=== PATIENT | male | born 1995 | race Caucasian/White ===

== ENCOUNTER 2024-05-20 15:54 | Outpatient (REF) | payer MEDICAID, SELFPAY ==
--- NOTE | ~2024-05-20 | XR_ITS ---
EXAMINATION: XR CERVICAL SPINE CLINICAL INFORMATION: neck pain/ LOW COMPARISON: None available. TECHNIQUE: 5 views of the cervical spine, inclusive of bilateral oblique views, were obtained. FINDINGS: Mild reversal of the normal lordosis centered at C3. Minimal levoconvex scoliosis. No subluxations. No fracture, compression deformity, or suspicious bone lesion. C1-2 articulation and craniocervical junction are intact and aligned. Normal facet alignment. Disc spaces appear normal. No significant bony neural foraminal narrowing on either side. The pre and paravertebral soft tissues are normal. The lung apices are clear. XR/XR cervical spine 4V IMPRESSION: No acute findings of the cervical spine. Electronically signed by: Darren Rios MD 05/20/2024 04:37 PM EDT
--- NOTE | ~2024-05-20 | XR_ITS ---
EXAMINATION: XR LUMBOSACRAL SPINE CLINICAL INFORMATION: LBP/sciatica COMPARISON: None available. TECHNIQUE: 5 views of the lumbar spine, inclusive of bilateral oblique views, were obtained. FINDINGS: There is a minimal levoconvex scoliosis. There is a normal lumbar lordosis. There is no subluxation. There is no compression deformities, acute fracture, or suspicious bone lesion. Disc spaces appear preserved throughout. Facets are normally aligned without significant facet arthropathy. Oblique views demonstrate no evidence of pars defects. There is no soft tissue abnormality. XR/XR lumbar spine 4V min IMPRESSION: No acute findings of the lumbar spine. Electronically signed by: Darren Rios MD 05/20/2024 04:38 PM EDT
--- OUTSIDE RECORDS SUMMARY | 2024-05-20 17:55 | XMS_ITS | Encounter Summary ---
Author Name [facility] [place] [facility] [place] [facility] [place] Address [address] [place] [address] Care Team Providers Care Outplacement Consultant Name Role Phone RA DIONYANTONIETA Primary Care Provider Unavailab le Insurance Providers: All historical and current Section Date Range: From patient's date of to the date document was created. This section includes the names of all active insurance providers for the patient. Insurance Provider Type of Coverage Plan Name Start of Policy Coverage End of Policy Coverage Group Number Member ID Insurance Provider's Telephone Number Policy Vanegas's Name Patient's Relationship to Policy Vanegas Selected Encounter This section includes the information on record at [place] for the Encounter. Date/Time Encounter Type Encounter Description Reason Pro vider Source IHE Encounter Template Text not used by [place] Advance Directives: All historical and current Section Date Range: From patient's date of to the date document was created. This section includes ALL of a patient's completed or amended [place] Advance and Rescinded Directives. The entries below indicate that a directive exists for the patient, but an actual copy is not included with this document. The data comes from all [place] facilities. Date Advance Directives Provider Source Nov 16, 2022 ADVANCE DIRECTIVE DISCUSSION SULEIMAN DUBOSE [facility] Nov 16, 2022 ADVANCE DIRECTIVE SULEIMAN [facility]
--- OUTSIDE RECORDS SUMMARY | 2024-05-20 17:55 | XMS_ITS | Continuity of Care Document ---
Author Name [facility] Organization [facility] Care Team Providers Care Radiological Engineer Name Role Phone [facility] Unavailable Unavailable Problems Combined list of problems from Department of Defense and Veterans Affairs facilities. It does not include entries that were removed or entered in error. Problem Status Onset Date Problem Type Date of Resolution Comments Source Admits alcohol use Active Condition [facility] Ankle sprain Active Condition Apr 20, 2020 Entered By: THERESA HARRISON Comment: Ankle Sprain, L Side APR 10: Seen Urg Care in [place]?Apr 20, 2020 Entered By: THERESA HARRISON Comment: Tx Conservativel y; referred to Ortho? [facility] Depression Active Condition [facility] Dyspnea on exertion Active Condition Apr 27, 2020 Entered By: THERESA HARRISON Comment: Relative Decreased Stamina Attributed to Burn Pit Exposure [facility] Low back pain Active Condition [facility] Mild alcohol dependence (SNOMED CT [id number]) Active Condition [facility] Posttraumatic stress disorder Active Condition [facility] Shoulder pain Active Condition [facility] Tobacco abuse Active Condition Nov Entered By: CHHAYA KIRKLAND Comment: Tobacco (Nicotine Vape) use Disorder, Mild [facility] Diagnosis: ICD-10-CM F10.10 Alcohol abuse, uncomplicated Active Diagnosis [facility] Diagnosis: ICD-10-CM M54.2 Cervicalgia Active Diagnosis [facility] Diagnosis: ICD-10-CM Z00.01 Encounter for general adult medical exam w abnormal findings Active Diagnosis [facility] Diagnosis: ICD-10-CM Z53.20 Proc/trtmt not crd out bec pt decision for unsp reasons Active Diagnosis [facility] Diagnosis: ICD-10-CM F32.9 Major depressive disorder, single episode, unspecified Active Diagnosis [facility] Diagnosis: ICD-10-CM F43.10 Post-traumatic stress disorder, unspecified Active Diagnosis [facility] Diagnosis: ICD-10-CM F43.12 Post-traumatic stress disorder, chronic Active Diagnosis [facility] Immunizations Combined list of available immunizations from the Department of Defense and Veterans Affairs facilities. Immunization Series Date Given Administered By Site Reaction Lot Number CVX Code Drug Transplant Nurse Practitioner Status Comments Source INFLUENZA, UNSPECIFIED FORMULATION 2020 88 complet ed [facility] HEP B, ADULT 3 2015 43 complet ed SEE JLV [facility] HEP B, ADULT 2 2013 43 complet ed [facility] HEP A, UNSPECIFIED FORMULATION 1 2013 85 complet ed [facility] HEP B, ADULT 1 2013 43 complet ed [facility] TDAP 2013 115 complet ed [facility] Results Combined list of recent chemistry, hematology and other laboratory results from Department of Defense and Veterans Affairs, ranging from 15 months to all on record, depending upon the facility. Order Name Results Value Reference Range Date Interpretation Specimen Comments Source TSH THYROTROPIN [UNITS/VOLU ME] IN SERUM OR PLASMA 3.27 u[IU]/ mL 0.35 - 5.00 11/15 Specimen Type: SERUM No comment entered. Ordering Provider: TUYET FATIMA IF Report Released Date/Time: Nov 14, 2022 10:01 PM Reporting Lab: [facility] [address] [address] Performing Lab[facility] [place] [facility] [address] [address] [facility] [place] [facility] BASIC METABOLIC PANEL (fasting) UREA NITROGEN [MASS/VOLUM E] IN SERUM OR PLASMA 12 mg/dL 7 - 11/15 Specimen Type: SERUM No comment entered. Ordering Provider: TUYET FATIMA IF Report Released Date/Time: Nov 14, 2022 10:01 PM Reporting Lab: [facility] [place] [facility] [address] [address] Performing Lab: [facility] [place] [facility] [address] [address] [facility] BASIC METABOLIC PANEL (fasting) GLUCOSE [MASS/VOLUM E] IN SERUM OR PLASMA 78 mg/dL 65 - 100 11/15 Specimen Type: SERUM No comment entered. Ordering Provider: TUYET FATIMA IF Report Released Date/Time: Nov 14, 2022 10:01 PM Reporting Lab: [facility] [place] [facility] [address] [address] Performing Lab: [facility] [address] [address] [facility] BASIC METABOLIC PANEL (fasting) SODIUM [MOLES/VOLU ME] IN SERUM OR PLASMA 140 mmol/L 135 - 145 11/15 Specimen Type: SERUM No comment entered. Ordering Provider: TUYET FATIMA IF Report Released Date/Time: Nov 14, 2022 10:01 PM Reporting Lab: [facility] [address] [address] Performing Lab: [facility] [address] [address] [facility] BASIC METABOLIC PANEL (fasting) POTASSIUM [MOLES/VOLU ME] IN SERUM OR PLASMA 4.2 mmol/L 3.5 - 5.0 11/15 Specimen Type: SERUM No comment entered. Ordering Provider: TUYET FATIMA IF Report Released Date/Time: Nov 14, 2022 10:01 PM Reporting Lab: [facility] [place] [facility] [address] [address] Performing Lab: [facility] [address] [address] [facility] BASIC METABOLIC PANEL (fasting) CHLORIDE [MOLES/VOLU ME] IN SERUM OR PLASMA 103 mmol/L 100 - 110 11/15 Specimen Type: SERUM No comment entered. Ordering Provider: TUYET FATIMA IF Report Released Date/Time: Nov 14, 2022 10:01 PM Reporting Lab: [facility] [place] [facility] [address] [address] Performing Lab: [facility] [place] [facility] [address] [address] [facility] [facility] BASIC METABOLIC PANEL (fasting) CARBON DIOXIDE, TOTAL [MOLES/VOLU ME] IN SERUM OR PLASMA 26 meq/L 20 - 30 11/15 Specimen Type: SERUM No comment entered. Ordering Provider: TUYET FATIMA IF Report Released Date/Time: Nov 14, 2022 10:01 PM Reporting Lab: [facility] [place] [facility] [address] [address] Performing Lab: [facility] [place] [place] [facility] [address] [address] [facility] BASIC METABOLIC PANEL (fasting) CREATININE [MASS/VOLUM E] IN SERUM OR PLASMA 1.10 mg/dL 0.50 - 1.40 11/15 Specimen Type: SERUM No comment entered. Ordering Provider: TUYET FATIMA IF Report Released Date/Time: Nov 14, 2022 10:01 PM Reporting Lab: [facility] [place] [place] [facility] [address] [address] Performing Lab: [facility] [place] [place] [facility] [address] [address] [facility] [place] [facility] BASIC METABOLIC PANEL (fasting) GLOMERULAR FILTRATION RATE/1.73 SQ M.PREDICTED [VOLUME RATE/AREA] IN SERUM, PLASMA OR BLOOD BY CREATININE- BASED FORMULA (CKD-EPI 2020) >90mL/ min 60 11/15 Specimen Type: SERUM No comment entered. Ordering Provider: TUYET FATIMA IF Report Released Date/Time: Nov 14, 2022 10:01 PM Reporting Lab: [facility] [place] [facility] [address] [address] Performing Lab: [facility] [place] [place] [facility] [address] [address] [facility] LIVER FUNCTION PROTEIN [MASS/VOLUM E] IN SERUM OR PLASMA 7.1 g/dL 6.0 - 8.3 11/15 Specimen Type: SERUM No comment entered. Ordering Provider: TUYET FATIMA IF Report Released Date/Time: Nov 14, 2022 10:01 PM Reporting Lab: [facility] [place] [facility] [address] [address] Performing Lab: [facility] [place] [place] [facility] [address] [address] [facility] [place] [facility] LIVER FUNCTION ALBUMIN [MASS/VOLUM E] IN SERUM OR PLASMA 4.2 g/dL 3.5 - 5.0 11/15 Specimen Type: SERUM No comment entered. Ordering Provider: TUYET FATIMA IF Report Released Date/Time: Nov 14, 2022 10:01 PM Reporting Lab: [facility] [place] [address] [address] Performing Lab: [facility] [place] [facility] [address] [address] [facility] [place] [facility] LIVER FUNCTION ALKALINE PHOSPHATASE [ENZYMATIC ACTIVITY/VO LUME] IN SERUM OR PLASMA 55 U/L 40 - 150 11/15 Specimen Type: SERUM No comment entered. Ordering Provider: TUYET FATIMA IF Report Released Date/Time: Nov 14, 2022 10:01 PM Reporting Lab: [facility] [place] [address] [address] Performing Lab: [facility] [place] [place] [facility] [address] [address] [facility] [place] [facility] LIVER FUNCTION ASPARTATE AMINOTRANSF ERASE [ENZYMATIC ACTIVITY/VO LUME] IN SERUM OR PLASMA 22 U/L 5 - 34 11/15 Specimen Type: SERUM No comment entered. Ordering Provider: TUYET FATIMA IF Report Released Date/Time: Nov 14, 2022 10:01 PM Reporting Lab: [facility] [place] [facility] [address] [address] Performing Lab: [facility] [address] [address] [facility] [facility] LIVER FUNCTION ALANINE AMINOTRANSF ERASE [ENZYMATIC ACTIVITY/VO LUME] IN SERUM OR PLASMA 40 U/L 11/15 Specimen Type: SERUM No comment entered. Ordering Provider: TUYET FATIMA IF Report Released Date/Time: Nov 14, 2022 10:01 PM Reporting Lab: [facility] [place] [facility] [address] [address] Performing Lab: [facility] [place] [facility] [address] [address] [facility] [place] [facility] LIVER FUNCTION BILIRUBIN.T OTAL [MASS/VOLUM E] IN SERUM OR PLASMA 0.8 mg/dL 0.2 - 1.2 11/15 Specimen Type: SERUM No comment entered. Ordering Provider: TUYET FATIMA IF Report Released Date/Time: Nov 14, 2022 10:01 PM Reporting Lab: [facility] [place] [facility] [address] [address] Performing Lab: [facility] [place] [facility] [address] [address] [facility] [place] [facility] Vital Signs Combined list of inpatient and outpatient Vital Signs from Department of Defense and Veterans Affairs, ranging from 12 months to all on record, depending upon the facility. Vital Sign Value Date Comments Source SYSTOLIC BLOOD PRESSURE 128 05/20/19 24 14:04:17 [facility] [place] [facility] DIASTOLIC BLOOD PRESSURE 78 024 14:04:17 [facility] WEIGHT 187 05/20/2023 14:04:17 [facility] BMI 28 kg/m2 05/20/2023 14:04:17 [facility] PAIN 0 05/20/2023 14:04:17 [facility] HEIGHT 69 05/20/2023 14:04:17 [facility] TEMPERATURE 97.3 05/20/2023 14:04:17 [facility] PULSE 81 05/20/2023 14:04:17 [facility] RESPIRATION 20 05/20/2023 14:04:17 [facility] Encounters Combined list of: 1) Encounters from Department of Veterans Affairs facilities going backup to the last 18 months, not all VA inpatient encounters are included; 2) Encounters from the Department of Defense facilities going backup to 280 months. Location Location Details Encounter Type Encounter Number Reason For Visit Attending Provider ADM Date DC Date Status Disposition Source [facility] OFFICE O/P EST LOW 20-29 MIN [id number] Diagnos is: ICD-10- CM F43.12 Post-tr aumatic stress disorde r, chronic LARROW,MARCELLE AN 11/18 [facility] [place] [facility] SBSQ HOSP IP/OBS HIGH 50 [id number] Diagnos is: ICD-10- CM F32.9 Major depress nirav disorde r, single episode , unspeci fied RA Colleen LAWRENCE 11/19 [facility] [place] [facility] GROUP PSYCHOTHER APY [id number] Diagnos is: ICD-10- CM F32.9 Major depress nirav disorde r, single episode , unspeci fied Colleen SANTO 11/19 [facility] [place] [facility] [place] CASE MANAGEMENT [id number] Diagnos is: ICD-10- CM F32.9 Major depress nirav disorde r, single episode , unspeci fied JUSTIN CARDONA 11/19 [facility] [place] [facility] [place] CASE MANAGEMENT [id number] Diagnos is: ICD-10- CM F43.10 Post-tr aumatic stress disorde r, unspeci fied TEOFILO-PIE RCE,JUSTIN 11/19 [facility] Inpatient Encounter [id number] 11/19 [facility] [place] SBSQ HOSP IP/OBS HIGH 50 [id number] Diagnos is: ICD-10- CM F32.9 Major depress nirav disorde r, single episode , unspeci fied RA Colleen LAWRENCE 11/20 [facility] [place] [facility] [place] CASE MANAGEMENT [id number] Diagnos is: ICD-10- CM F32.9 Major depress nirav disorde r, single episode , unspeci fied TEOFILO-PIE RCE,JUSTIN 11/20 [facility] [place] [facility] [place] [facility] ACTIVITY THERAPY, PER 15 MIN [id number] Diagnos is: ICD-10- CM F10.10 Alcohol abuse, uncompl icated AYSE MORE 11/20 [facility] [place] [facility] [place] Inpatient Encounter [id number] 11/20 [facility] [place] [facility] [place] PSYCH DIAGNOSTIC EVALUATION [id number] Diagnos is: ICD-10- CM F10.10 Alcohol abuse, uncompl icated JAY KIRKLAND 11/28 [facility] Outpatient Encounter [id number] JAY KIRKLAND 11/28 [facility] PSYCH DIAGNOSTIC EVALUATION [id number] Diagnos is: ICD-10- CM F10.10 Alcohol abuse, uncompl icated JAY KIRKLAND 11/28 [facility] Out[facility] Encounter [id number] 11/28 [facility] En[facility] [id number] 12/05 [facility] En[facility] [id number] 12/11 [facility] Encounter [id number] 12/14 [facility] Encounter [id number] 12/25 [facility] Encounter [id number] 12/26 [facility] Encounter [id number] 12/31 [facility] En[facility] [id number] 01/03 [facility] [id number] 11/17 /2023 [facility] En[facility] [id number] 01/07 [facility] Encounter [id number] 01/09 [facility] Encounter [id number] 01/28 [facility] Encounter [id number] 03/13 [facility] [place] Outpatient Encounter [id number] Diagnos is: ICD-10- CM Z53.20 Proc/tr tmt not crd out bec pt decisio n for unsp reasons Ca BARRON POLIVOLODYMYR03/18 [facility]P EST MOD 30 MIN [id number] Diagnos is: ICD-10- CM Z00.01 Encount er for general adult medical exam w abnorma l finding s Ca BARRON 05/19 [facility] Out[facility] En[facility] [id number] 05/20 [facility] Encounter [id number] 06/03 [facility] Encounter [id number] 06/09 [facility] Encounter [id number] 06/10 [facility] Encounter [id number] 06/10 [facility] Encounter [id number] 07/21 [facility] OFFICE O/P NEW MOD 45 MIN [id number] Diagnos is: ICD-10- CM M54.2 Cervica lgia NANCY CARLIN RA 09/09 [facility] En[facility] [id number] 09/09 [facility] Encounter [id number] 09/10 [facility] Encounter [id number] 09/10 [facility] Encounter [id number] 12/05 [facility] Encounter [id number] 01/06 [facility] Out[facility] Encounter [id number] 01/19 [facility] PSYCH DIAGNOSTIC EVALUATION [id number] Diagnos is: ICD-10- CM F10.10 Alcohol abuse, uncompl icated JAY KIRKLAND 02/02 [facility] Outpatient Encounter [id number] JAY KIRKLAND 02/02 [facility] [place] [facility] Outpatient Encounter [id number] 05[facility]08 [facility] Social History Combined list of available smoking, tobacco, and other social history from Department of Defense and Veterans Affairs facilities. Social History Type Response Date Comment Sour e Tobacco smoking status NHIS MD-TOBACCO NEVER USED CIGARETTES 02[facility]20[facility] History of tobacco use MD-TOBACCO USE EVERY DAY OTHER TYPE 02/03/2024 [facility] History of tobacco use MD-TOBACCO USER EVERY DAY 11/28/2022 [facility] History of tobacco use ORYX ADMIT TOBACCO SCREEN YES 11/14/2022 [facility] History of tobacco use MD-TOBACCO NEVER USED 04/27/2020 [facility] History of tobacco use LIFETIME NON-TOBACCO USER 09/07/2017 [facility] Plan of Care List of future care activities from Department of Veterans Affairs facilities. Additional future care activities may be listed in the Assessment and Plan section. Date/Time Care Activity Care Activity Detail Facili ty 05/19/2024 [facility] Advance Directives List of completed, amended, or rescinded Advance Directives on record at Department of Veterans Affairs facilities. An actual copy of the Directive is not included. Date Advance Directive Provider Source 11/16/2022 ADVANCE DIRECTIVE DISCUSSION SULEIMAN DUBOSE [facility] 11/16/2022 ADVANCE DIRECTIVE SULEIMAN DUBOSE [facility]
--- OUTSIDE RECORDS SUMMARY | 2024-05-20 17:55 | XMS_ITS | Clinical Summary ---
Author Organization [employer] Address [address] [facility] [address] [place] [address] Care Team Providers Care Rug Dyer Helper Name Role Phone Nikkie Wilson MD Primary Care Provider + Allergies No known active allergies Medications cyclobenzaprine (Flexeril) 10 MG tablet Take 1 tablet (10 mg) by mouth at bedtime for 10 days. 10 tablet 05/19/2024 5 Active acetaminophen (Tylenol Extra Strength) 500 MG tablet Take 1 tablet (500 mg) by mouth every 6 (six) hours if needed for mild pain. 120 tablet 05/19/2024 5 Active meloxicam (Mobic) 15 MG tablet Take 1 tablet (15 mg) by mouth Once per day. 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 Advised not to crack his neck anymore. Give him information about stretching exercises for his neck, refer to PT Meloxicam, Tylenol and Flexeril as above. Ordered x-rays and follow-up with PCP Chronic nonintractable headache 05/19/2024 Assessment & Plan (05/19/2024 7:23 PM EDT): Most likely tension headache due to DJD of the spine, unclear if related to previous head trauma/TBI at the and previous trauma in high school (played football and wrestling) Recommended stretching exercises for his C-spine, avoid cracking his cervical spine. Take Tylenol and Flexeril as needed Advised to quit nicotine Follow-up with PCP Acute right-sided low back pain with right-sided sciatica 05/19/2024 Assessment & Plan (05/19/2024 5:40 PM EDT): Referred to PT Take meloxicam x 1 to 2 weeks +Tylenol and Flexeril nightly. He can take Tylenol up to every 8 hours as needed pain. Caution with worsening leg weakness, paresthesias or urinary retention. Follow-up with your PCP in 1 to 2 months Current every day nicotine vaping 05/19/2024 Assessment & Plan (05/19/2024 7:22 PM EDT): Consult regarding risk of vaping and discussed the need to cut down on nicotine He will follow-up with your PCP Current every day cannabis vaping 05/19/2024 Assessment & Plan (05/19/2024 7:21 PM EDT): Advised to quit and discussed the connection between denies and chronic headache and also worsening of TBI symptoms Follow-up with new PCP Encounters Date Type Department Care Team Description 05/20/2024 Telephone [facility] [address] [place] [phone] Nikkie Wlison MD Care Management (C3CM- f/u call lv) 05/20/2024 Patient Outreach [facility] [address] [place] [phone] Nikkie Wilson MD Care Coordination (SDOH f/u) 05/19/2024 5:20 PM EDT Office Visit [facility] [address] [place] [phone] Nikkie Wilson MD Acute right-sided low back pain with right-sided sciatica (Primary Dx); Neck pain; Chronic nonintractable headache, unspecified headache type; Current every day nicotine vaping; Current every day cannabis vaping 05/13/2024 Telephone [facility] [address] [place] [phone] Payam Patel MD New patient appt. 05/13/2024 Patient Outreach [facility] [address] [place] [phone] Machelle Vincent Care Coordination (OFFSET PLATEMAKER appt) 05/13/2024 Population Health Risk Score [facility] () [address] [phone] Provider, Population Health Generic 05/11/2024 Telephone [facility] [address] [place] [phone] Kellen Vera RN Care Management (C3- initial assessment/ enrollment) 05/08/2024 Patient Outreach [facility] [address] [place] [address] [phone] Machelle Vincent Care Coordination (CM/CHW appt) 04/21/2024 Patient Outreach [address] [phone] Payam Patel MD Care Coordination (CM/CHW outreach) 04/16/2024 Patient Outreach [address] [phone] Payam Patel MD Care Coordination (CM/CHW outreach) from Last 3 Months Social History Tobacco Use Types Packs/Day Years Used Date Smoking Tobacco: Never Smokeless Tobacco: Never Tobacco Cessation:Counseling Given: Yes Alcohol Use Standard Drinks/Week Comments Yes 0 (1 standard drink = 0.6 oz pur e alcohol) Every other day wine/beer Sex and Gender Information Value Date Recorded Sex Assigned at Male 05/19/2024 4:30 PM EDT Legal Sex Male 2:31 PM EST Gender Identity Male 05/19/2024 4:30 PM EDT Sexual Orientation Straight 05/19/2024 4: 30 PM EDT Last Filed Vital Signs Vital Sign Reading Time Taken Comments Blood Pressure 140/80 05/19/2024 7:15 PM EDT Pulse 95 05/19/2024 4:57 PM EDT Temperature 37 ??C (98.6 ??F) 05/19/2024 4:57 PM EDT Respiratory Rate 18 05/19/2024 4:57 PM EDT Oxygen Saturation 97% 05/19/2024 4:57 PM EDT Inhaled Oxygen Concentration - - Weight 89.7 kg (197 lb 12.8 oz) 05/19/2024 4:57 PM EDT Height - - Body Mass Index - - Plan of Treatment Health Maintenance Due Date Last Done Comments Depression Screening 1995 HIV Screening 1995 SDOH Screening 1995 Alcohol/Substance Use Screening 2007 Family Planning (PISQ) 10/08/2010 Hepatitis C Screening 10/08/2013 Hepatitis A Vaccines (2 of 2 - 2-dose series) 03/28/2014 09/25/2013 DTaP/Tdap/Td Vaccines (2 - T d or Tdap) 09/24/2023 09/23/2013 COVID-19 Vaccine (2 - 2023-2 5 season) 2023 12/22/2020 Influenza Vaccine (#1) 2023 03/21/2020 Tobacco Screening 05/19/2025 05/19/2024 Zoster Vaccines (1 of 2) 10/08/2045 RSV Patients and Patients Aged 60 years or older (1 - 1-dose 75+ series) 10/08/2070 Hepatitis B Vaccines Completed 03/26/2015, 11/12/2013, 09/25/2013 HIB Vaccines Aged Out No longer eligi ble based on patient's age to complete this topic HPV Vaccines Aged Out No longer eligi ble based on patient's age to complete this topic IPV Vaccines Aged Out No longer eligi ble based on patient's age to complete this topic Meningococcal Vaccine Aged Out No dao gerry eligible based on patient's age to complete this topic Pneumococcal Vaccine: Pediatrics (0 to 5 Years) and At-Risk Patients (6 to 49) Years) Aged Out No longer eligible b ased on patient's age to complete this topic RSV under 20 months Aged Out No longe r eligible based on patient's age to complete this topic Rotavirus Vaccines Aged Out No longer eligible based on patient's age to complete this topic Procedures Procedure Name Priority Date/Time Associated Diagnosis Comments XR CERVICAL SPINE 4V Routine 05/20/2024 3:56 PM EDT Neck pain Chronic nonintractable headache, unspecified headache type XR LUMBAR SPINE COMPLETE 4+ VIEWS Routine 05/20/2024 3:56 PM EDT Acute right-sided low back pain with right-sided sciatica from Last 3 Months Results * XR CERVICAL SPINE 4V (05/20/2024 3:56 PM EDT) Anatomical Region Laterality Modality Abdomen Radiographic Elaine ging 05/20/2024 3:56 PM EDT Narrative 05/20/2024 4:39 PM EDT ?[facility] ?[address] ?[place] [address] ?XRay Report ? Signed ? Patient: Jose R,Valeriy ?MR#: [id number] ? : 1995 ?Acct:[id number] ? Age/Sex: 28 / M ?ADM Date: 05/20/24 ? Loc: HO.HHCX ? Attending Dr: Nikkie Wilson MD ? Ordering Physician: Nikkie Wilson MD ?? Date of Service: 05/20/24 ?? Procedure(s): XR cervical spine 4V ?? Accession Number(s): [id number] ? cc: Nikkie Wilson MD ? EXAMINATION: ?? XR CERVICAL SPINE ? CLINICAL INFORMATION: ?? neck pain/ LOW ? COMPARISON: ?? None available. ? TECHNIQUE: ?? 5 views of the cervical spine, inclusive of bilateral oblique views, ?? were obtained. ? FINDINGS: ?? Mild reversal of the normal lordosis centered at C3. Minimal levoconvex ?? scoliosis. ?? No subluxations. ?? No fracture, compression deformity, or suspicious bone lesion. ?? C1-2 articulation and craniocervical junction are intact and aligned. ?? Normal facet alignment. ?? Disc spaces appear normal. ? No significant bony neural foraminal narrowing on either side. ? The pre and paravertebral soft tissues are normal. The lung apices are ?? clear. ? XR/XR cervical spine 4V ?? IMPRESSION: ?? No acute findings of the cervical spine. ? Electronically signed by: ??Darren Rios MD ??05/20/2024 04:37 PM EDT RP ? Dictated By: ?Darren Rios MD ? Signed By: ?<Electronically signed by Darren Rios MD in OV> ?05/20/24 1637 ? DD/ 1556 ? TD/TT: 05/20/24 1600 ? Access Lead: ? Procedure Note Tyree, Image - 05/20/2024 [facility] [address] [place] [address] XRay Report Signed Patient: Tomy Odell#: [id number] : 1995Acct:[id number] Age/Sex: 28 / MADM Date: 05/20/24 Loc: HO.HHX Attending Dr: Nikkie Wilson MD Ordering Physician: Nikkie Wilson MD Date of Service: 05/20/24 Procedure(s): XR cervical spine 4V Accession Number(s): [id number] cc: Nikkie Wilson MD EXAMINATION: XR CERVICAL SPINE CLINICAL INFORMATION: neck pain/ LOW COMPARISON: None available. TECHNIQUE: 5 views of the cervical spine, inclusive of bilateral oblique views, were obtained. FINDINGS: Mild reversal of the normal lordosis centered at C3. Minimal levoconvex scoliosis. No subluxations. No fracture, compression deformity, or suspicious bone lesion. C1-2 articulation and craniocervical junction are intact and aligned. Normal facet alignment. Disc spaces appear normal. No significant bony neural foraminal narrowing on either side. The pre and paravertebral soft tissues are normal. The lung apices are clear. XR/XR cervical spine 4V IMPRESSION: No acute findings of the cervical spine. Electronically signed by: Darren Rios MD 05/20/2024 04:37 PM EDT Dictated By: Darren Rios MD Signed By: <Electronically signed by Darren Rios MD in OV> 05/20/24 1637 DD/ 1556 TD/TT: 05/20/24 1600 Access Lead: us Nikkie Wilson MD IMG XR PROCEDURES Final Result * XR Lumbar Spine Complete 4+ Views (05/20/2024 3:56 PM EDT) Anatomical Region Laterality Modality Spine, L-spine Radiographic Elaine ging 05/20/2024 3:56 PM EDT Narrative 05/20/2024 4:41 PM EDT ?[place] [facility] ?[address] ?[place] [address] ?XRay Report ? Signed ? Patient: Cave,Valeriy ?MR#: [id number] ? : 1995 ?Acct:[id number] ? Age/Sex: 28 / M ?ADM Date: 05/20/24 ? Loc: HO.HHCX ? Attending Dr: Nikkie Wilson MD ? Ordering Physician: Nikkie Wilson MD ?? Date of Service: 05/20/24 ?? Procedure(s): XR lumbar spine 4V min ?? Accession Number(s): [id number] ? cc: Nikkie Wilson MD ? EXAMINATION: ?? XR LUMBOSACRAL SPINE ? CLINICAL INFORMATION: ?? LBP/sciatica ? COMPARISON: ?? None available. ? TECHNIQUE: ?? 5 views of the lumbar spine, inclusive of bilateral oblique views, were ?? obtained. ? FINDINGS: ?? There is a minimal levoconvex scoliosis. There is a normal lumbar ?? lordosis. ?? There is no subluxation. ?? There is no compression deformities, acute fracture, or suspicious bone ?? lesion. ?? Disc spaces appear preserved throughout. ?? Facets are normally aligned without significant facet arthropathy. ? Oblique views demonstrate no evidence of pars defects. ? There is no soft tissue abnormality. ? XR/XR lumbar spine 4V min ?? IMPRESSION: ?? No acute findings of the lumbar spine. ? Electronically signed by: ??Darren Rios MD ??05/20/2024 04:38 PM EDT RP ? Dictated By: ?Darren Rios MD ? Signed By: ?<Electronically signed by Darren Rios MD in OV> ?05/20/24 1638 ? DD/ 1556 ? TD/TT: 05/20/24 1600 ? Access Lead: ? Procedure Note Weston Clements - 05/20/2024 [facility] [address] [place] [address] XRay Report Signed Patient: Tomy Odell#: [id number] : 1995Acct:[id number] Age/Sex: 28 / MADM Date: 05/20/24 Loc: HO.HHCX Attending Dr: Nikkie Wilson MD Ordering Physician: Nikkie Wilson MD Date of Service: 05/20/24 Procedure(s): XR lumbar spine 4V min Accession Number(s): [id number] cc: Nikkie Wilson MD EXAMINATION: XR LUMBOSACRAL SPINE CLINICAL INFORMATION: LBP/sciatica COMPARISON: None available. TECHNIQUE: 5 views of the lumbar spine, inclusive of bilateral oblique views, were obtained. FINDINGS: There is a minimal levoconvex scoliosis. There is a normal lumbar lordosis. There is no subluxation. There is no compression deformities, acute fracture, or suspicious bone lesion. Disc spaces appear preserved throughout. Facets are normally aligned without significant facet arthropathy. Oblique views demonstrate no evidence of pars defects. There is no soft tissue abnormality. XR/XR lumbar spine 4V min IMPRESSION: No acute findings of the lumbar spine. Electronically signed by: Darren Rios MD 05/20/2024 04:38 PM EDT Dictated By: Darren Rios MD Signed By: <Electronically signed by Darren Rios MD in OV> 05/20/24 1638 DD/ 1556 TD/TT: 05/20/24 1600 Access Lead: Nikkie Wilson MD IMG XR PROCEDURES Final Result from Last 3 Months Insurance [facility] C3 Care Teams Rug Dyer Helper Relationship Specialty Start Date End Date Nikkie Wilson MD [address] [place] [phone] PCP - General Internal Medicine 05/20/24
--- OUTSIDE RECORDS SUMMARY | 2024-05-20 17:55 | XMS_ITS | Encounter Summary ---
Author Name [facility] [place] Organization [facility] [place] Address [address] [place] [address] Care Team Providers Care Umbrella Tipper Name Role Phone VORADAVID Primary Care Provider Unavailab le Insurance Providers: [...] section includes the information on record at [place] for the Encounter. Date/Time Encounter Type Encounter Description Reason Pro vider Source Jan 20, 2024 09:00 AM Outpatient Encounter SUBSTANCE USE DISORDER IND IHE Encounter Template Text not used by [place] Plan of Treatment: Future Appointments (+ 6 months) and Future Tests (+/- 45 days) The Plan of Treatment section includes future care activities for the patient from all [place] treatmentfacilities. This section includes future appointments and future orders which are active, pending or scheduled. Future Appointments This section includes appointments that were scheduled to occur 6 months from the date of the Encounter, up to a maximum of 20 appointments. The data comes from all [place] treatment facilities. Appointment Date/Time Appointment Type Appointme nt Facility Name Feb 03, 2024 10:30 AM AMBULATORY - PSYCHIATRY [facility] May 19, 2024 02:00 PM AMBULATORY - MEDICINE [facility] Social History: Smoking Status (Most current) and Tobacco Use (All prior to encounter date) This section includes the most current, and the historical, smoking and tobacco- related health factors from the [place] facility where the Encounter took place. Current Smoking Status This section includes the most current smoking, or tobacco-related health factor, from the [place] facility where the Encounter took place. Date/Time Current Smoking Status Comment Facil ity Nov 28, 2022 10:30 AM VA-TOBACCO USER EVERY DAY [facility] Tobacco Use History This section includes a history of the smoking, or tobacco-related health factors, that were collected on or before the date of the Encounter. The data comes from the [place] facility where the Encounter took place. Date/Time Smoking Status/Tobacco Use Comment F acility Nov 28, 2022 10:30 AM VA-TOBACCO USE ADVICE [facility] Nov 28, 2022 10:30 AM VA-TOBACCO USE AUTOMOBILE CLUB INFORMATION CLERK NO [facility] Nov 28, 2022 10:30 AM VA-TOBACCO USE MED NO [facility] Nov 28, 2022 10:30 AM VA-TOBACCO USE WI 30 MIN [facility] Nov 28, 2022 10:30 AM VA-TOBACCO USER EVERY DAY [facility] Nov 14, 2022 10:22 PM ORYX ADMIT TOBACCO SCREEN YES [facility] Nov 14, 2022 10:22 PM ORYX ADMIT TOBACCO USE CIGS GR 5D [facility] Nov 14, 2022 10:22 PM ORYX DAILY TOBACCO AUTOMOBILE CLUB INFORMATION CLERK RECEIVED [facility] Nov 14, 2022 10:22 PM ORYX DAILY TOBACCO MEDS ORDERED [facility] Sep 07, 2017 09:04 AM LIFETIME NON-TOBACCO USER [facility] Advance Directives: All historical and current Section Date Range: From patient's date of to the date document was created. This section includes ALL of a patient's completed or amended [place] Advance and Rescinded Directives. The entries below indicate that a directive exists for the patient, but an actual copy is not included with this document. The data comes from all [place] facilities. Date Advance Directives Provider Source Nov 16, 2022 ADVANCE DIRECTIVE DISCUSSION SULEIMAN DUBOSE [facility] Nov 16, 2022 ADVANCE DIRECTIVE SULEIMAN DUBOSE [facility] Encounter Notes: All associated encounter notes This section contains the clinical notes associated to the Encounter. Date/Time Encounter Note(s) Provider Source Jan 20, 2024 09:44 AM CLERICAL NOTE: LOCAL TITLE: APPOINTMENT NO SHOW STANDARD TITLE: CLERICAL NOTE DATE OF NOTE: JAN 20, 2024@09:44 ENTRY DATE: JAN 20, 2024@09:44:58 AUTHOR: SANAM KIRKLAND COSIGNER: URGENCY: STATUS: COMPLETED Patient Name: LATISHA SALEEM Patient SSN: [id number] Date and time of Appointment No show : 01/20/24 09:00 PATIENT PHONE - [phone] PHONE NUMBER [CELLULAR] - Patient's medical record was reviewed. Follow-up actions were determined and initiated: Please check/complete as applies: [X]Telephoned Directly [ ]Re-scheduled for next available appt [X]Sent a N0-show letter ( must call for appointment) [ ]Other (Emergent/Overbook, etc.): Additional Comments: Patient did not show for Intake and Assessment appointment via [facility] on: Saturday, 20 JAN 2024 @ 0900 hours Resent patient email link to todays [facility] appointment. Called patient at in an attempt to reschedule intake appointment and/or reengage patient in treatment. No answer. Automated voice message stated, The mailbox is full and cannot receive any messages at this time. Goodbye.. No option to leave message for patient to call the undersigned back. Future Clinic Visits 05/19/2024 14:00 CWM/SO/PACT 9 /darcy/ SANAM KIRKLAND CLINIC LEAD Critical Care Physician Signed: 01/20/2024 09:45 SANAM KIRKLAND [facility]
--- OUTSIDE RECORDS SUMMARY | 2024-05-20 17:55 | XMS_ITS | Encounter Summary ---
Author Organization [employer] Address [address] [facility] [address] [place] [address] Care Team Providers Care Steamship Agent Name Role Phone Nikkie Wilson MD Primary Care Provider + Reason for Visit * Reason Onset Date Comments Care Management 05/20/2024 C3CM- f/u call l vm Encounter Details Date Type Department Care Team ([facility] st Contact Info) Description 05/20/2024 Telephone [facility] [address] [place], [place] [phone] Nikkie Wilson MD [address] [place], [place] [phone] Care Management (C3CM- f/u call lvm) Social History Tobacco Use Types Packs/Day Years Used Date Smoking Tobacco: Never Smokeless Tobacco: Never Alcohol Use Standard Drinks/Week Comments Yes 0 (1 standard drink = 0.6 oz pur e alcohol) Every other day wine/beer Sex and Gender Information Value Date Recorded Sex Assigned at Male 05/19/2024 4:30 PM EDT Legal Sex Male 2:31 PM EST Gender Identity Male 05/19/2024 4:30 PM EDT Sexual Orientation Straight 05/19/2024 4: 30 PM EDT documented as of this encounter Miscellaneous Notes * Telephone Encounter - Kellen Vera RN - 05/20/2024 9:48 AM EDT CM Kellen Vera RN placed outbound call with CHW Machelle Vincent to patient for follow up call. Noanswer at this time. LVM introducing herself from [facility] CM Department. Requested call back. CM reinforced direct contact information or CHW for any additional questions or concerns. Education provided on [facility]In Urgent Care located in [facility]. Patient provided with after-hours line for [facility], , which offer night time triage service and option to transfer to gastroenterology nurse practitioner provider if needed. CM will attempt another follow up call within 10 days. documented in this encounter Plan of Treatment Not on file documented as of this encounter Visit Diagnoses Not on filedocumented in this encounter Care Teams Steamship Agent Relationship Specialty Start Date End Date Nikkie Wilson MD [address] [place] [phone] PCP - General Internal Medicine 05/20/24 documented as of this encounter
--- OUTSIDE RECORDS SUMMARY | 2024-05-20 17:55 | XMS_ITS | Encounter Summary ---
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 visit, a [id number] visit will be scheduled. 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 Over the past month, have you wished you were or wished you could go to sleep and not wake up? Yes 2. Over the past month, have you had any actual thoughts of killing yourself? No 3. Over the past month, have you been thinking about how you might do this? Response not required due to responses to other questions. 4. Over the past month, have you had these thoughts and had some intention of acting on them? Response not required due to responses to other questions. 5. Over the past month, have you started to work out or worked out the details of how to kill yourself? Response not required due to responses to other questions. 6. If yes, at any time in the past month did you intend to carry out this plan? Response not required due to responses to other questions. 7. In your lifetime, have you ever done anything, started to do anything, or prepared to do anything to end your life (for example, collected pills, obtained a gun, gave away valuables, went to the roof but didn't jump)? Yes 8. If YES, was this within the past 3 months? No Depression Screening: Perform PHQ-2 A PHQ-2 screen was performed. The score was 6 which is a positive screen for depression. Over the past two weeks, how often have you been bothered by the following problems? 1. Little interest or pleasure in doing things Nearly every day 2. Feeling down, depressed, or hopeless Nearly every day Licensed Independent Provider notified of positive screen and need for follow-up. Name of provider notified: [place] [facility] Alcohol Use Screen (AUDIT-C): Alcohol Screen: SCREEN FOR ALCOHOL (AUDIT-C) An alcohol screening test (AUDIT-C) was negative (score=4). 1. How often did you have a drink containing alcohol in the past year? Consider a drink to be a 12 ounce can or bottle of regular beer, 8 ounces of malt liquor, a 5 ounce glass of table wine, or a 1.5 ounce shot of liquor (like scotch, gin, or vodka). Two to three times per week 2. How many drinks containing alcohol did you have on a typical day when you were drinking in the past year? One or two drinks 3. How often did you have six or more drinks on one occasion in the past year? Less than monthly Sexual Orientation: The patient thinks of their sexual orientation as: Straight or Heterosexual Tobacco Use Screening: The patient has never smoked cigarettes. The patient uses other type(s) of tobacco every day. Other Tobacco Type(s) used: Electronic Nicotine Delivery System (ENDS) (e.g., e-cigarettes/vape pens) Patient was advised to stop smoking and/or using other tobacco products. Advised patient that a combination of behavioral counseling and FDA-approved cessation medications is the most effective way to ensure their success in stopping to smoke and/or using other tobacco products. The patient was not interested in additional information about behavioral counseling and other support strategies discussed. Informed patient that medications can help with cravings and withdrawal symptoms, and they greatly increase the chances of successfully stopping your tobacco use. The patient was not interested in a prescription for tobacco cessation medications. /darcy/ SANAM HILLS [facility] Residential Real Estate Agent Signed: 02/03/2024 11:53 SANAM HILLS [facility]
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
--- OUTSIDE RECORDS SUMMARY | 2024-05-20 17:55 | XMS_ITS | Encounter Summary ---
Author Organization [employer] Address [address] [facility] [address] [place] [address] Care Team Providers Care Awning Hanger Supervisor Name Role Phone Unavailable Primary Care Provider Unavailabl e Reason for Referral * Consultation (Routine) - Closed Specialty Diagnoses / Procedures Referred By Contac t Referred To Contact Physical Therapy Diagnoses Acute right-sided low back pain with right-sided sciatica Nikkie Wilson MD [address] [place] [phone] Phone: tel: fax: Physical Therapy, AT [address] [place] [address] [address] [place] Phone: tel: fax: Referral ID Status Reason Start Date Expiration Date V isits Requested Visits Authorized [id number] Closed Specialty Services Required 05/19/2024 05/19/2025 20 20 Reason for Visit * Reason Comments Back Pain Encounter Details Date Type Department Care Team (Latest Contact Info) Description 05/19/2024 5:20 PM EDT Office Visit [facility] [address] [place] [address] [phone] Nikkie Wilson MD [address] [place] [address] [phone] Acute right-sided low back pain with right-sided sciatica (Primary Dx); Neck pain; Chronic nonintractable headache, unspecified headache type; Current every day nicotine vaping; Current every day cannabis vaping Social History Tobacco Use Types Packs/Day Years [...] PM EDT documented as of this encounter Last Filed Vital Signs Vital Sign Reading [...] - - Body Mass Index - - documented in this encounter Progress Notes * Nikkie Wilson MD - 05/19/2024 5:20 PM EDT SUBJECTIVE: Valeriy Odell is a 28 y.o. year old male who presents for [facility]/HEALTH FACILITIES SURVEYOR/LBP . Denies recent illness, injury, or hospitalization. PMH History of TBI (traumatic brain injury) during service, he also played football and wrestling in high school. He had recurrent headaches occasionally improved with ibuprofen Negative HTN, DM, CAD, asthma, seizure disorder. PSH None Meds Ibuprofen as needed Social Hx Lives with fianc??. 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 He vapes nicotine and THC daily He drinks 3-4 drinks every other day He denies using any other recreational substances All NKDA Patient here with his fianc??e for evaluation of LBP. Acute Concerns: Exacerbation of low back pain since this morning while watching TV, heat to his back and was unableto turn it back due to extreme pain and stiffness. Pain started radiating to lower extremity, associated to numbness difficulty ambulation but slowly improved with ibuprofen and stretching exercises.He has not had any recent trauma, falls or accidents. He had similar symptoms mostly his upper backfor many years after he left the . He was stationed in different places since age 17 for about 8 to 10 years, he left the on 2022. Social History Social History Narrative Patient Active Problem List Diagnosis Neck pain Chronic nonintractable headache Acute right-sided low back pain with right-sided sciatica Current every day nicotine vaping Current every day cannabis vaping No family history on file. Review of Systems Constitutional: Negative for fever. HENT: Negative for congestion, ear pain, rhinorrhea and sore throat. Eyes: Negative for pain and discharge. Respiratory: Negative for cough and shortness of breath. Cardiovascular: Negative for chest pain. Gastrointestinal: Negative for abdominal pain, constipation, diarrhea and nausea. Endocrine: Negative for polydipsia. Genitourinary: Negative for dysuria and frequency. Musculoskeletal: Positive for back pain, myalgias, neck pain and neck stiffness. Negative for arthralgias. Neurological: Positive for headaches. Negative for dizziness and numbness. Psychiatric/Behavioral: Negative for agitation. OBJECTIVE: Vitals: 05/19/24 1915 BP: (!) 140/80 Pulse: Resp: Temp: SpO2: Physical Exam Constitutional: Appearance: Normal appearance. HENT: Right Ear: Tympanic membrane and ear canal normal. Left Ear: Tympanic membrane and ear canal normal. Mouth/Throat: Mouth: Mucous membranes are moist. Pharynx: No oropharyngeal exudate or posterior oropharyngeal erythema. Eyes: Pupils: Pupils are equal, round, and reactive to light. Cardiovascular: Rate and Rhythm: Normal rate and regular rhythm. Heart sounds: No murmur heard. Pulmonary: Breath sounds: Normal breath sounds. No wheezing. Abdominal: General: Bowel sounds are normal. Palpations: Abdomen is soft. Tenderness: There is no abdominal tenderness. Musculoskeletal: Cervical back: Spasms and tenderness present. Decreased range of motion. Thoracic back: No tenderness or bony tenderness. Lumbar back: Spasms and tenderness present. Positive right straight leg raise test. Skin: General: Skin is warm. Neurological: General: No focal deficit present. Mental Status: He is alert and oriented to person, place, and time. Psychiatric: Mood and Affect: Mood normal. Problem List Items Addressed This Visit Acute right-sided low back pain with right-sided sciatica - Primary Referred to PT Take meloxicam x 1 to 2 weeks +Tylenol and Flexeril nightly. He can take Tylenol up to every 8 hours as needed pain. Caution with worsening leg weakness, paresthesias or urinary retention. 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 Advised not to crack his neck anymore. Give him information about stretching exercises for his neck, refer to PT Meloxicam, Tylenol and Flexeril as above. Ordered x-rays and follow-up with PCP Relevant Orders XR CERVICAL SPINE 4V Chronic nonintractable headache Most likely tension headache due to DJD of the spine, unclear if related to previous head trauma/TBI at the and previous trauma in high school (played football and wrestling) Recommended stretching exercises for his C-spine, avoid cracking his cervical spine. Take Tylenol and Flexeril as needed Advised to quit nicotine Follow-up with PCP Relevant Orders XR CERVICAL SPINE 4V Current every day nicotine vaping Consult regarding risk of vaping and discussed the need to cut down on nicotine He will follow-up with your PCP Current every day cannabis vaping Advised to quit and discussed the connection between denies and chronic headache and also worseningof TBI symptoms Follow-up with new PCP Follow Up: No current outpatient medications on file prior to visit. No current facility-administered medications on file prior to visit. documented in this encounter Miscellaneous Notes * Patient Education Note - Nikkie Wilson MD - 05/19/2024 9:32 PM EDT Images from the original note were not included. Patient Education Table of Contents Cervical Strain and Sprain Rehab To view videos and all your education online visit, [email or web address] or scan this QR code with your smartphone. Access to this content will in one year. Cervical Strain and Sprain Rehab Ask your health care provider which exercises are safe for you. Do exercises exactly as told by your health care provider and adjust them as directed. It is normal to feel mild stretching, pulling, tightness, or discomfort as you do these exercises. Stop right away if you feel sudden pain or your pain gets worse. Do not begin these exercises until told by your health care provider. Stretching and vqicp-oh-otiyzj exercises Cervical side bending 1. Using good posture, sit on a stable chair or stand up. Without moving your shoulders, slowly tilt your left / right ear to your shoulder until you feel a stretch in the neck muscles on the opposite side. You should be looking straight ahead. Hold for seconds. Repeat with the other side of your neck. Repeat times. Complete this exercise times a day. Cervical rotation 1. Using good posture, sit on a stable chair or stand up. Slowly turn your head to the side as if you are looking over your left / right shoulder. Keep your eyes level with the ground. Stop when you feel a stretch along the side and the back of your neck. Hold for seconds. Repeat this by turning to your other side. Repeat times. Complete this exercise times a day. Thoracic extension and pectoral stretch 1. Roll a towel or a small blanket so it is about 4 inches (10 cm) in diameter. Lie down on your back on a firm surface. Put the towel in the middle of your back across your spine. It should not be under your shoulder blades. Put your hands behind your head and let your elbows fall out to your sides. Hold for seconds. Repeat times. Complete this exercise times a day. Strengthening exercises Upper cervical flexion 1. Lie on your back with a thin pillow behind your head or a small, rolled-up towel under your neck. Gently tuck your chin toward your chest and nod your head down to look toward your feet. Do not lift your head off the pillow. Hold for seconds. Release the tension slowly. Relax your neck muscles completely before you repeat this exercise. Repeat times. Complete this exercise times a day. Cervical extension 1. Stand about 6 inches (15 cm) away from a wall, with your back facing the wall. Place a soft object, about 6?8 inches (15?20 cm) in diameter, between the back of your head and thewall. A soft object could be a small pillow, a ball, or a folded towel. Gently tilt your head back and press into the soft object. Keep your jaw and forehead relaxed. Hold for seconds. Release the tension slowly. Relax your neck muscles completely before you repeat this exercise. Repeat times. Complete this exercise times a day. Posture and body mechanics Body mechanics refer to the movements and positions of your body while you do your daily activities. Posture is part of body mechanics. Good posture and healthy body mechanics can help to relieve stress in your body's tissues and joints. Good posture means that your spine is in its natural S-curve position (your spine is neutral), your shoulders are pulled back slightly, and your head is not tipped forward. The following are general guidelines for using improved posture and body mechanics in your everydayactivities. Sitting When sitting, keep your spine neutral and keep your feet flat on the floor. Use a footrest, if needed, and keep your thighs parallel to the floor. Avoid rounding your shoulders. Avoid tilting your head forward. When working at a desk or a computer, keep your desk at a height where your hands are slightly lower than your elbows. Slide your chair under your desk so you are close enough to maintain good posture. When working at a computer, place your monitor at a height where you are looking straight ahead andyou do not have to tilt your head forward or downward to look at the screen. Standing When standing, keep your spine neutral and keep your feet about hip-width apart. Keep a slight bendin your knees. Your ears, shoulders, and hips should line up. When you do a task in which you spring internship one place for a long time, place one foot up on a stable object that is 2?4 inches (5?10 cm) high, such as a footstool. This helps keep your spine neutral. Resting When lying down and resting, avoid positions that are most painful for you. Try to support your neck in a neutral position. You can use a contour pillow or a small rolled-up towel. Your pillow shouldsupport your neck but not push on it. This information is not intended to replace advice given to you by your health care provider. Make sure you discuss any questions you have with your health care provider. Document Released: 2006-02-04 Document Updated: 2023-06-10 Document Reviewed: 2022-08-27 [employer] Patient Education ? 2024 [employer] * Patient Education Note - Nikkie Wilson MD - 05/19/2024 9:32 PM EDT Images from the original note were not included. Patient Education Table of Contents Sciatica Rehab To view videos and all your education online visit, [email or web address] or scan this QR code with your smartphone. Access to this content will in one year. Sciatica Rehab Ask your health care provider which exercises are safe for you. Do exercises exactly as told by your health care provider and adjust them as directed. It is normal to feel mild stretching, pulling, tightness, or discomfort as you do these exercises. Stop right away if you feel sudden pain or your pain gets worse. Do not begin these exercises until told by your health care provider. Stretching and eqvmy-cr-hffvnh exercises These exercises warm up your muscles and joints and improve the movement and flexibility of your hips and back. These exercises also help to relieve pain, numbness, and tingling. Sciatic nerve glide 1. Sit in a chair with your head facing down toward your chest. Place your hands behind your back. Let your shoulders slump forward. Slowly straighten one of your legs while you tilt your head back as if you are looking toward the ceiling. Only straighten your leg as far as you can without making your symptoms worse. Hold this position for seconds. Slowly return your leg and head back to the starting position. Repeat with your other leg. Repeat times. Complete this exercise times a day. Knee to chest with hip adduction and internal rotation 1. Lie on your back on a firm surface with both legs straight. Bend one of your knees and move it up toward your chest until you feel a gentle stretch in your lower back and buttock. Then, move your knee toward the shoulder that is on the opposite side from yourleg. This is hip adduction and internal rotation. Hold your leg in this position by holding on to the front of your knee. Hold this position for seconds. Slowly return to the starting position. Repeat with your other leg. Repeat times. Complete this exercise times a day. Prone extension on elbows 1. Lie on your abdomen on a firm surface. A bed may be too soft for this exercise. Prop yourself up on your elbows. Use your arms to help lift your chest up until you feel a gentle stretch in your abdomen and your lower back. This will place some of your body weight on your elbows. If this is uncomfortable, try stacking pillows under your chest. Your hips should stay down, against the surface that you are lying on. Keep your hip and back muscles relaxed. Hold this position for seconds. Slowly relax your upper body and return to the starting position. Repeat times. Complete this exercise times a day. Strengthening exercises These exercises build strength and endurance in your back. Endurance is the ability to use your muscles for a long time, even after they get tired. Pelvic tilt This exercise strengthens the muscles that lie deep in the abdomen. 1. Lie on your back on a firm surface. Bend your knees and keep your feet flat on the surface. Tense your abdominal muscles. Tip your pelvis up toward the ceiling and flatten your lower back into the firm surface. To help with this exercise, you may place a small towel under your lower back and try to push your back into the towel. Hold this position for seconds. Let your muscles relax completely before you repeat this exercise. Repeat times. Complete this exercise times a day. Alternating arm and leg raises 1. Get on your hands and knees on a firm surface. If you are on a hard floor, you may want to use padding, such as an exercise mat, to cushion your knees. Line up your arms and legs. Your hands should be directly below your shoulders, and your knees should be directly below your hips. Lift your left leg behind you. At the same time, raise your right arm and straighten it in front ofyou. Do not lift your leg higher than your hip. Do not lift your arm higher than your shoulder. Keep your abdominal and back muscles tight. Keep your hips facing the ground. Do not arch your back. Keep your balance carefully, and do not hold your breath. Hold this position for seconds. Slowly return to the starting position. Repeat with your right leg and your left arm. Repeat times. Complete this exercise times a day. Posture and body mechanics Good posture and healthy body mechanics can help to relieve stress in your body's tissues and joints. Body mechanics refers to the movements and positions of your body while you do your daily activities. Posture is part of body mechanics. Good posture means: Your spine is in its natural S-curve position (neutral). Your shoulders are pulled back slightly. Your head is not tipped forward. Follow these guidelines to improve your posture and body mechanics in your everyday activities. Standing When standing, keep your spine neutral and your feet about hip width apart. Keep a slight bend in your knees. Your ears, shoulders, and hips should line up. When you do a task in which you spring internship one place for a long time, place one foot up on a stable object that is 2?4 inches (5?10 cm) high, such as a footstool. This helps keep your spine neutral. Sitting When sitting, keep your spine neutral and keep your feet flat on the floor. Use a footrest, if necessary, and keep your thighs parallel to the floor. Avoid rounding your shoulders, and avoid tilting your head forward. When working at a desk or a computer, keep your desk at a height where your hands are slightly lower than your elbows. Slide your chair under your desk so you are close enough to maintain good posture. When working at a computer, place your monitor at a height where you are looking straight ahead andyou do not have to tilt your head forward or downward to look at the screen. Resting When lying down and resting, avoid positions that are most painful for you. If you have pain with activities such as sitting, bending, stooping, or squatting, lie in a position in which your body does not bend very much. For example, avoid curling up on your side with your arms and knees near your chest ( position). If you have pain with activities such as standing for a long time or reaching with your arms, lie with your spine in a neutral position and bend your knees slightly. Try the following positions: ? Lying on your side with a pillow between your knees. ? Lying on your back with a pillow under your knees. Lifting When lifting objects, keep your feet at least shoulder width apart and tighten your abdominal muscles. Bend your knees and hips and keep your spine neutral. It is important to lift using the strength ofyour legs, not your back. Do not lock your knees straight out. Always ask for help to lift heavy or awkward objects. This information is not intended to replace advice given to you by your health care provider. Make sure you discuss any questions you have with your health care provider. Document Released: 2006-02-04 Document Updated: 2022-05-15 Document Reviewed: 2022-05-15 [employer] Patient Education ? 2024 [employer] * Assessment & Plan Note - Nikkie Wilson MD - 05/19/2024 7:22 PM EDT Associated Problem(s): Current every day nicotine vaping Consult regarding risk of vaping and discussed the need to cut down on nicotine He will follow-up with your PCP * Assessment & Plan Note - Nikkie Wilson MD - 05/19/2024 7:21 PM EDT Associated Problem(s): Current every day cannabis vaping Advised to quit and discussed the connection between denies and chronic headache and also worseningof TBI symptoms Follow-up with new PCP * Assessment & Plan Note - Nikkie Wilson MD - 05/19/2024 5:42 PM EDT Associated Problem(s): Chronic nonintractable headache Most likely tension headache due to DJD of the spine, unclear if related to previous head trauma/TBI at the and previous trauma in high school (played football and wrestling) Recommended stretching exercises for his C-spine, avoid cracking his cervical spine. 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 Advised not to crack his neck anymore. Give him information about stretching exercises for his neck, refer to PT Meloxicam, Tylenol and Flexeril as above. Ordered x-rays and follow-up with PCP * Assessment & Plan Note - Nikkie Wilson MD - 05/19/2024 5:40 PM EDT Associated Problem(s): Acute right-sided low back pain with right-sided sciatica Referred to PT Take meloxicam x 1 to 2 weeks +Tylenol and Flexeril nightly. He can take Tylenol up to every 8 hours as needed pain. Caution with worsening leg weakness, paresthesias or urinary retention. Follow-up with your PCP in 1 to 2 months documented in this encounter Plan of Treatment Scheduled Referrals Name Type Priority Associated Diagnoses Orde r Schedule Referral to Physical Therapy Outpatient Referral Routine Acute right-sided low back pain with right-sided sciatica Expected: 05/19/2024 (Approximate), Expires: 05/19/2025 documented as of this encounter Procedures Procedure Name Priority Date/Time Associated Diagnosis Comments XR CERVICAL SPINE 4V Routine 05/20/2024 3:56 PM EDT Neck pain Chronic nonintractable headache, unspecified headache type XR LUMBAR SPINE COMPLETE 4+ VIEWS Routine 05/20/2024 3:56 PM EDT Acute right-sided low back pain with right-sided sciatica documented in this encounter Results * XR CERVICAL SPINE 4V (05/20/2024 3:56 PM EDT) Anatomical Region Laterality Modality Abdomen Radiographic Elaine ging 05/20/2024 3:56 PM EDT Narrative 05/20/2024 4:39 PM EDT ?[facility] ?[address] ?[place] [address] ?XRay Report ? Signed ? Patient: Jose R,Valeriy ?MR#: [id number] ? : 1995 ?Acct:[id number] ? Age/Sex: 28 / M ?ADM Date: 05/20/24 ? Loc: HO.HHCX ? Attending Dr: Nikkie Wilson MD ? Ordering Physician: Nikkie Wilson MD ?? Date of Service: 05/20/24 ?? Procedure(s): XR cervical spine 4V ?? Accession Number(s): [id number] ? cc: Nikkie Wilson MD ? EXAMINATION: [...] DD/ 1556 ? TD/TT: 05/20/24 1600 ? Creative Writing Professor: ? Procedure Note Dondarline, Image - 05/20/[address] [address] XRay Report Signed Patient: Tomy Odell#: [id number] : 1995Acct:[id number] Age/Sex: 28 / MADM Date: 05/20/24 Loc: HO.HHCX Attending Dr: Nikkie Wilson MD Ordering Physician: Nikkie Wilson MD Date of Service: 05/20/24 Procedure(s): XR cervical spine 4V Accession Number(s): [id number] cc: Nikkie Wilson MD EXAMINATION: XR CERVICAL [...] 05/20/24 1637 DD/ 1556 TD/TT: 05/20/24 1600 Creative Writing Professor: us Nikkie Wilson MD IMG XR PROCEDURES Final Result * XR Lumbar Spine Complete 4+ Views (05/20/2024 3:56 PM EDT) Anatomical Region Laterality Modality Spine, L-spine Radiographic Elaine ging 05/20/2024 3:56 PM EDT Narrative 05/20/2024 4:41 PM EDT ?[facility] ?[address] ?[place] [address] ?XRay Report ? Signed ? Patient: Valeriy Odell ?MR#: [id number] ? : 1995 ?Acct:[id number] ? Age/Sex: 28 / M ?ADM Date: 05/20/24 ? Loc: HO.HHCX ? Attending Dr: Nikkie Wilson MD ? Ordering Physician: Nikkie Wilson MD ?? Date of Service: 05/20/24 ?? Procedure(s): XR lumbar spine 4V min ?? Accession Number(s): [id number] ? cc: Nikkie Wilson MD ? EXAMINATION: [...] DD/ 1556 ? TD/TT: 05/20/24 1600 ? Creative Writing Professor: ? Procedure Note Donotclareter, Image - 05/20/[address] [address] XRay Report Signed Patient: Tomy Odell#: [id number] : 1995Acct:[id number] Age/Sex: 28 / MADM Date: 05/20/24 [facility]: Nikkie Wilson MD Ordering Physician: Nikkie Wilson MD Date of Service: 05/20/24 Procedure(s): XR lumbar spine 4V min Accession Number(s): [id number] cc: Nikkie Wilson MD EXAMINATION: XR LUMBOSACRAL [...] 05/20/24 1638 DD/ 1556 TD/TT: 05/20/24 1600 Creative Writing Professor: Nikkie Wilson MD IMG XR PROCEDURES Final Result documented in this encounter Visit Diagnoses Diagnosis Acute right-sided low back pain with right-sided sciatica- Primary Neck pain Cervicalgia Chronic nonintractable headache, unspecified headache type Current every day nicotine vaping Current every day cannabis vaping documented in this encounter
--- OUTSIDE RECORDS SUMMARY | 2024-05-20 17:55 | XMS_ITS | Encounter Summary ---
Author Organization [employer] Address [address] [facility] [address] [place] [address] Care Team Providers Care Dentistry Teacher Name Role Phone Nikkie Wislon MD Primary Care Provider + Reason for Visit * Reason Comments Care Coordination SDOH f/u Encounter Details Date Type Department Care Team (Latest Contact Info) Description 05/20/2024 Patient Outreach [facility] [address], [place] [phone] Nikkie Wilson MD [address], [place] [phone] Care Coordination (SDOH f/u) Social History Tobacco Use Types Packs/Day Years [...] PM EDT documented as of this encounter Progress Notes * Machelle Vincent - 05/20/2024 9:31 AM EDT CHW Machelle Vincent/CM Kellen Vera RN placed outbound call to patient for follow up call on SDOH needs. No answer at this time. LVM introducing herself from [facility] CM Department. Requested call back. CHW reinforced direct contact information or CM for any additional questions or concerns and extended clinic hours on Mondays and Wednesdays, and Walk-In Urgent Care Located in Lobby of [facility]. Patient provided with after-hours line for [facility], , which offer night time triage service and option to transfer to remote control assembler provider if needed. CHW will attempt another follow up call within 10 days. documented in this encounter Plan of Treatment Not on file documented as of this encounter Visit Diagnoses Not on filedocumented in this encounter Care Teams Dentistry Teacher Relationship Specialty Start Date End Date Nikkie Wilson MD [address] [place] [id number] PCP - General Internal Medicine 05/20/24 documented as of this encounter
== END 2024-05-20 15:55 | disposition home or self-care (01) ==
LOC: HO.HHCX 15:54
PROVIDERS: Visit Provider Internal Medicine
DX: M54.41 Lumbago with sciatica, right side (principal); M54.2 Cervicalgia; R51.9 Headache, unspecified; G89.29 Other chronic pain
CPT/HCPCS: 72050; 72110

== ENCOUNTER → 2024-05-20 15:56 | Outpatient (BNV) | payer MEDICAID, SELFPAY | PROVIDERS: Visit Provider Radiology Diagnostic Radiology | DX: M54.2 Cervicalgia (principal); M54.30 Sciatica, unspecified side | CPT/HCPCS: 72050; 72110 ==